=== PATIENT | male | born 1955 ===

== ENCOUNTER 2024-06-20 06:17 | Day surgery (SDC) | payer BC, SELFPAY | END 2024-06-20 15:00 | disposition home or self-care (01) | LOC: GI 06:17 | PROVIDERS: ATTENDING PHYSICIAN Surgery | DX: Z12.11 Encounter for screening for malignant neoplasm of colon (principal); D12.4 Benign neoplasm of descending colon; K57.30 Diverticulosis of large intestine without perforation or abscess without bleeding | CPT/HCPCS: 45385; 88305 ==